=== PATIENT | female | born 1935 | race Caucasian/White ===

== ENCOUNTER → 2017-11-07 | Outpatient (CLI) | payer MEDICARE ==
[~2017-11-07] MED LIST: AMLODIPINE BESY10 MG; ASPIRIN81 M2; BROVANA15 MCG/2 M INH; BYSTOLIC 5 MG5 M1; CALCIUM 500 +1 EAC5; CARTIA XT180 M1 PO; CENTRUM SILVER1 EAC4 PO; IMDUR 30 MG TAB30 M1; IMURAN 50MG TAB50 M1; INCRUSE ELLI62.5 MCG INH; MICARDIS 80 MG80 MG; MICARDIS 80 MG80 MG PO; MULTIVITAMINS1 EAC7; PREMARIN VAGI42.5 G1; PRESERVISION T1 EACH; SPIRIVA INH; TRIAMTERENE/HCT1 CA1 PO; XANAX 0.25 MG0.25 MG PO
[2017-11-07 10:19] LABS: ABSOLUTE EOSINOPHILS 0.2 thou/uL (0.0-0.7); ABSOLUTE LYMPHOCYTES 1.2 thou/uL (0.8-5.3); ABSOLUTE MONOCYTES 0.6 thou/uL (0.0-1.2); ABSOLUTE NEUTROPHILS 6.5 thou/uL (1.6-8.1); BASOPHILS 0.5 %; EOSINOPHILS 1.8 %; HEMATOCRIT 40.3 % (37.0-47.0); HEMOGLOBIN 13.6 gm/dL (12.0-15.0); LYMPHOCYTES 14.6 %; MCH 32.2 pg (26.0-34.0); MCHC 33.7 g/dL (28.0-37.0); MCV 95.6 fL (80.0-100.0); MONOCYTES 6.8 %; MPV 8.1 fl. (7.2-11.1); NUCLEATED RBCS 0 /100WBC; PLATELET COUNT* 284 thou/uL (150-400); POLYS 76.3 %; RBC 4.21 mil/uL (4.20-5.00); RDW-CV 14.3 % (10.5-14.5); WBC 8.5 thou/uL (4.0-11.0)
[2017-11-07 10:36] LABS: PROTIME 9.9 Seconds (9.20-11.50)
[2017-11-07 10:38] LABS: ALBUMIN 3.9 g/dL (3.4-5.0); CALCIUM 9.4 mg/dL (8.5-10.1); CREATININE 0.9 mg/dL (0.6-1.3); POTASSIUM 3.6 mmol/L (3.5-5.1); TOTAL BILIRUBIN 0.6 mg/dL (<0.1-1.0); TOTAL PROTEIN 8.1 g/dL (6.4-8.2)
== END ==
LOC: M.ULTRA 09:55 → M.LAB 10:00 → M.ULTRA 10:30
PROVIDERS: Internal Medicine Gastroenterology
DX: K74.60 Unspecified cirrhosis of liver (principal); K75.4 Autoimmune hepatitis

== ENCOUNTER → 2018-06-03 | Outpatient (CLI) | payer MEDICARE ==
[2018-06-03 09:58] LABS: ABSOLUTE EOSINOPHILS 0.1 thou/uL (0.0-0.7); ABSOLUTE LYMPHOCYTES 1.3 thou/uL (0.8-5.3); ABSOLUTE MONOCYTES 0.5 thou/uL (0.0-1.2); ABSOLUTE NEUTROPHILS 5.6 thou/uL (1.6-8.1); BASOPHILS 0.6 %; EOSINOPHILS 1.6 %; HEMOGLOBIN 13.4 gm/dL (12.0-15.0); LYMPHOCYTES 17.2 %; MCH 32.1 pg (26.0-34.0); MCHC 33.5 g/dL (28.0-37.0); MCV 95.9 fL (80.0-100.0); MONOCYTES 7.2 %; MPV 7.6 fl. (7.2-11.1); NUCLEATED RBCS 0 /100WBC; PLATELET COUNT* 294 thou/uL (150-400); POLYS 73.4 %; RBC 4.17 mil/uL (4.20-5.00); RDW-CV 14.6 % (10.5-14.5); WBC 7.6 thou/uL (4.0-11.0)
[2018-06-03 10:07] LABS: PROTIME 10.2 Seconds (9.20-11.50)
[2018-06-03 10:14] LABS: ALBUMIN 3.7 g/dL (3.4-5.0); CALCIUM 9.2 mg/dL (8.5-10.1); CREATININE 0.8 mg/dL (0.6-1.3); POTASSIUM 3.9 mmol/L (3.5-5.1); TOTAL BILIRUBIN 0.6 mg/dL (<0.1-1.0); TOTAL PROTEIN 7.8 g/dL (6.4-8.2)
== END ==
LOC: M.LAB 09:43
PROVIDERS: Internal Medicine Gastroenterology
DX: K74.60 Unspecified cirrhosis of liver (principal); K75.4 Autoimmune hepatitis

== ENCOUNTER 2018-06-05 16:53 | Emergency (ER) | payer MEDICARE ==
[~2018-06-05] VITALS: Ht 167.6 cm; Wt 59.0 kg
[~2018-06-05 16:53] MED LIST changes: -CENTRUM SILVER1 EAC4 PO; -INCRUSE ELLI62.5 MCG INH
[2018-06-05] MEDS ORDERED: MICARDIS 80 MG80 MG PO (17:08)
[2018-06-05] MEDS ORDERED: CENTRUM SILVER1 EAC4 PO (17:09)
[2018-06-05] MEDS ORDERED: INCRUSE ELLI62.5 MCG INH (17:10)
[2018-06-05 19:27] VITALS: BP 142/70
== END 2018-06-05 19:28 | disposition home or self-care (01) ==
LOC: M.ERS 16:53
DX: S62.327A Displaced fracture of shaft of fifth metacarpal bone, left hand, initial encounter for closed fracture (principal); S61.412A Laceration without foreign body of left hand, initial encounter; S80.212A Abrasion, left knee, initial encounter; M25.552 Pain in left hip; J44.9 Chronic obstructive pulmonary disease, unspecified; Z90.710 Acquired absence of both cervix and uterus; Z90.49 Acquired absence of other specified parts of digestive tract; Z86.73 Personal history of transient ischemic attack (TIA), and cerebral infarction without residual deficits; Z88.2 Allergy status to sulfonamides; W01.0XXA Fall on same level from slipping, tripping and stumbling without subsequent striking against object, initial encounter; Y93.89 Activity, other specified; Y92.89 Other specified places as the place of occurrence of the external cause; Y99.8 Other external cause status

== ENCOUNTER → 2018-06-27 | Outpatient (CLI) | payer MEDICARE ==
[~2018-06-27] MED LIST changes: +CENTRUM SILVER1 EAC4 PO; +INCRUSE ELLI62.5 MCG INH
== END ==
LOC: M.ULTRA 09:00
DX: K74.60 Unspecified cirrhosis of liver (principal); K75.4 Autoimmune hepatitis; I70.0 Atherosclerosis of aorta

== ENCOUNTER → 2019-01-01 | Outpatient (CLI) | payer MEDICARE ==
[2019-01-01 11:30] LABS: ABSOLUTE EOSINOPHILS 0.1 thou/uL (0.0-0.7); ABSOLUTE LYMPHOCYTES 1.2 thou/uL (0.8-5.3); ABSOLUTE MONOCYTES 0.6 thou/uL (0.0-1.2); ABSOLUTE NEUTROPHILS 6.5 thou/uL (1.6-8.1); BASOPHILS 0.4 %; EOSINOPHILS 1.4 %; HEMATOCRIT 36.5 % (37.0-47.0); HEMOGLOBIN 12.4 gm/dL (12.0-15.0); LYMPHOCYTES 14.6 %; MCH 32.3 pg (26.0-34.0); MCV 95.1 fL (80.0-100.0); MONOCYTES 7.2 %; MPV 7.5 fl. (7.2-11.1); NUCLEATED RBCS 0 /100WBC; PLATELET COUNT* 329 thou/uL (150-400); POLYS 76.4 %; RBC 3.84 mil/uL (4.20-5.00); RDW-CV 14.3 % (10.5-14.5); WBC 8.5 thou/uL (4.0-11.0)
[2019-01-01 11:39] LABS: PROTIME 10.2 Seconds (9.20-11.50)
== END ==
LOC: M.LAB 11:06
PROVIDERS: Internal Medicine Gastroenterology
DX: K74.60 Unspecified cirrhosis of liver (principal); K75.4 Autoimmune hepatitis

== ENCOUNTER → 2019-02-10 | Outpatient (CLI) | payer MEDICARE ==
[2019-02-10 13:43] LABS: ALBUMIN 3.5 g/dL (3.4-5.0); CALCIUM 9.6 mg/dL (8.5-10.1); CREATININE 0.8 mg/dL (0.6-1.3); POTASSIUM 3.6 mmol/L (3.5-5.1); TOTAL BILIRUBIN 0.5 mg/dL (<0.1-1.0)
== END ==
LOC: M.LAB 13:03
PROVIDERS: Internal Medicine Gastroenterology
DX: K75.4 Autoimmune hepatitis (principal); K74.60 Unspecified cirrhosis of liver

== ENCOUNTER → 2019-02-16 | Outpatient (CLI) | payer MEDICARE | LOC: M.RAD 13:25 | DX: M81.0 Age-related osteoporosis without current pathological fracture (principal); M85.89 Other specified disorders of bone density and structure, multiple sites; Z78.0 Asymptomatic menopausal state ==

== ENCOUNTER → 2019-06-17 | Outpatient (CLI) | payer MEDICARE ==
[2019-06-17 11:33] LABS: ABSOLUTE BASOPHILS 0.1 thou/uL (0.0-0.2); ABSOLUTE EOSINOPHILS 0.1 thou/uL (0.0-0.7); ABSOLUTE LYMPHOCYTES 1.4 thou/uL (0.8-5.3); ABSOLUTE MONOCYTES 0.6 thou/uL (0.0-1.2); BASOPHILS 0.6 %; EOSINOPHILS 1.7 %; HEMATOCRIT 35.1 % (37.0-47.0); HEMOGLOBIN 12.1 gm/dL (12.0-15.0); LYMPHOCYTES 16.7 %; MCH 32.6 pg (26.0-34.0); MCHC 34.5 g/dL (28.0-37.0); MCV 94.7 fL (80.0-100.0); MONOCYTES 7.9 %; MPV 7.5 fl. (7.2-11.1); NUCLEATED RBCS 0 /100WBC; PLATELET COUNT* 320 thou/uL (150-400); POLYS 73.1 %; RDW-CV 14.4 % (10.5-14.5); WBC 8.2 thou/uL (4.0-11.0)
[2019-06-17 11:57] LABS: ALBUMIN 3.8 g/dL (3.4-5.0); CALCIUM 9.5 mg/dL (8.5-10.1); CREATININE 0.9 mg/dL (0.6-1.3); POTASSIUM 3.8 mmol/L (3.5-5.1); TOTAL BILIRUBIN 0.5 mg/dL (<0.1-1.0); TOTAL PROTEIN 7.4 g/dL (6.4-8.2)
== END ==
LOC: M.LAB 11:09
PROVIDERS: Internal Medicine Gastroenterology
DX: K75.4 Autoimmune hepatitis (principal); K74.60 Unspecified cirrhosis of liver

== ENCOUNTER 2020-04-09 13:27 | Emergency (ER) | payer MEDICARE ==
[~2020-04-09] VITALS: Ht 165.1 cm; Wt 54.4 kg
[2020-04-09] MEDS ORDERED: MICARDIS40 MG PO (13:47)
[2020-04-09] MEDS ORDERED: ALTERA NEBULIZ1 EACH INH (13:47)
[2020-04-09] MEDS ORDERED: AVASTIN25 MG/1 ML IV (13:47)
[2020-04-09] MEDS ORDERED: OXYGEN MISCELL (13:48)
[2020-04-09] MEDS ORDERED: COLACE100 MG PO (15:33)
[2020-04-09] MEDS ORDERED: ROXICODONE5 M2 PO (15:37)
[2020-04-09 15:48] VITALS: BP 145/70
== END 2020-04-09 15:48 | disposition home or self-care (01) ==
LOC: M.ERS 13:27
DX: S32.030A Wedge compression fracture of third lumbar vertebra, initial encounter for closed fracture (principal); M25.551 Pain in right hip; J44.9 Chronic obstructive pulmonary disease, unspecified; Z90.710 Acquired absence of both cervix and uterus; Z90.49 Acquired absence of other specified parts of digestive tract; Z86.73 Personal history of transient ischemic attack (TIA), and cerebral infarction without residual deficits; Z96.642 Presence of left artificial hip joint; Z88.2 Allergy status to sulfonamides; W18.39XA Other fall on same level, initial encounter; Y93.89 Activity, other specified; Y92.89 Other specified places as the place of occurrence of the external cause; Y99.8 Other external cause status

== ENCOUNTER 2020-07-21 13:02 | Emergency (ER) | payer OTHER, MEDICARE ==
[~2020-07-21] VITALS: Ht 165.1 cm; Wt 55.3 kg
[~2020-07-21 13:02] MED LIST changes: +ALTERA NEBULIZ1 EACH INH; +AVASTIN25 MG/1 ML IV; +COLACE100 MG PO; +MICARDIS40 MG PO; +OXYGEN MISCELL; +ROXICODONE5 M2 PO
[2020-07-21 14:10] LABS: ABSOLUTE EOSINOPHILS 0.1 thou/uL (0.0-0.7); ABSOLUTE LYMPHOCYTES 0.8 thou/uL (0.8-5.3); ABSOLUTE MONOCYTES 0.7 thou/uL (0.0-1.2); ABSOLUTE NEUTROPHILS 8.9 thou/uL (1.6-8.1); BASOPHILS 0.3 %; HEMATOCRIT 33.8 % (37.0-47.0); HEMOGLOBIN 11.5 gm/dL (12.0-15.0); LYMPHOCYTES 7.7 %; MCH 32.4 pg (26.0-34.0); MCV 95.3 fL (80.0-100.0); MONOCYTES 6.8 %; MPV 7.8 fl. (7.2-11.1); NUCLEATED RBCS 0 /100WBC; PLATELET COUNT* 381 thou/uL (150-400); POLYS 84.2 %; RBC 3.55 mil/uL (4.20-5.00); RDW-CV 19.7 % (10.5-14.5); WBC 10.5 thou/uL (4.0-11.0)
[2020-07-21 14:15] LABS: CREATININE 0.9 mg/dL (0.6-1.3); POTASSIUM 3.8 mmol/L (3.5-5.1)
[2020-07-21 14:19] LABS: ALBUMIN 3.3 g/dL (3.4-5.0); TOTAL BILIRUBIN 0.7 mg/dL (<0.1-1.0); TOTAL PROTEIN 7.3 g/dL (6.4-8.2)
[2020-07-21 15:28] LABS: URINE BILIRUBIN NEGATIVE (Negative); URINE BLOOD NEGATIVE (Negative); URINE CLARITY CLEAR; URINE COLOR YELLOW; URINE GLUCOSE-RANDOM NEGATIVE (Negative); URINE KETONES NEGATIVE (Negative); URINE LEUKOCYTES-REFLEX 1+ (Negative); URINE NITRITE-REFLEX NEGATIVE (Negative); URINE PROTEIN NEGATIVE (Negative); URINE UROBILINOGEN 0.2 E.U./dl (0.2-1.0)
[2020-07-21 15:46] LABS: BACTERIA-REFLEX 1-9 Few /HPF (None Seen); COARSE GRANULAR CASTS 0-3 Few /LPF (None Seen); CRYSTALS None Seen /LPF (None Seen); FINE GRANULAR CASTS 0-3 Few /LPF (None Seen); HYALINE CASTS 0-3 Few /LPF (None Seen); SQUAMOUS >10 Many /LPF (0-3); URINE RBC 0-2 Rare /HPF (0-2); URINE WBC-REFLEX 0-5 Rare /HPF (0-5)
--- NOTE | 2020-07-21 16:19 | EKG ---
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[facility] : 1935 Requested By: Nancy Hurtado Order Number: [id number] MD: Tello Zarate Measurements Intervals [place] Rate: 94 P: 97 SD: 131 QRS: 56 QRSD: 102 T: 69 QT: 369 QTc: 462 Interpretive Statements Sinus rhythm Borderline ST depression, diffuse leads Compared to ECG 05/21/2013 14:54:33 Sinus arrhythmia no longer present ST (T wave) deviation still present Electronically Signed On 07-21-2020 16:19:34 [employer] by Tello Zarate [email or web address] <ELECTRONICALLY SIGNED> By: Tello Zarate MD, FAC 07/21/20 1619 1335 1335 Tello Zarate MD, [facility] /EPI
[2020-07-21] MEDS ORDERED: HYDROCODON-ACE1 EAC7 PO (16:28)
[2020-07-21 16:30] VITALS: BP 131/68
== END 2020-07-21 16:30 | disposition home or self-care (01) ==
LOC: M.ERS 13:02
PROVIDERS: Physician Assistant
DX: K86.2 Cyst of pancreas (principal); J44.9 Chronic obstructive pulmonary disease, unspecified; Z90.710 Acquired absence of both cervix and uterus; Z90.89 Acquired absence of other organs; Z86.73 Personal history of transient ischemic attack (TIA), and cerebral infarction without residual deficits; Z79.899 Other long term (current) drug therapy; Z79.82 Long term (current) use of aspirin; Z88.2 Allergy status to sulfonamides

== ENCOUNTER → 2020-11-11 | Outpatient (CLI) | payer MEDICARE ==
[~2020-11-11] MED LIST changes: +HYDROCODON-ACE1 EAC7 PO
[2020-11-11 12:44] LABS: CREATININE 0.7 mg/dL (0.6-1.3)
== END ==
LOC: M.LAB 12:12 → M.CT 13:30
PROVIDERS: ATTEND Surgery
DX: K42.9 Umbilical hernia without obstruction or gangrene (principal); R19.04 Left lower quadrant abdominal swelling, mass and lump; I25.10 Atherosclerotic heart disease of native coronary artery without angina pectoris; K40.90 Unilateral inguinal hernia, without obstruction or gangrene, not specified as recurrent

== ENCOUNTER 2020-12-16 09:21 | Observation (INO) | payer MEDICARE ==
[~2020-12-16] VITALS: Ht 165.1 cm; Wt 51.7 kg
--- NOTE | ~2020-12-16 | OP ---
[address] [address] OPERATIVE REPORT Name: TONY CASTANEDA [id number] Admission: 12/16/20 Attend Phys: Eduardo Caballero DO Discharge: Date of : 33 Report #: [id number] THIS REPORT FOR: cc: Ray Addison MD, Meng MD Kramer, Adam P. DO ~ DOC #: [id number] Fitz Hernández DO DATE OF SURGERY: 12/16/2020 PREOPERATIVE DIAGNOSES: Left inguinal hernia and incisional hernia. POSTOPERATIVE DIAGNOSES: Left-sided spigelian hernia and incisional hernia. PROCEDURE PERFORMED: Incisional hernia repair with mesh and primary repair of spigelian hernia. PRIMARY SURGEON: Eduardo Caballero DO. CO-SURGEON: Fitz Hernández DO, PGY5. TRANSLITERATOR: None. ANESTHESIA: General, local. FINDINGS: A small incisional hernia above her umbilicus and left lower quadrant spigelian hernia. COMPLICATIONS: None. ESTIMATED BLOOD LOSS: 5 mL. SPECIMENS: None. IMPLANTS: Ventralex ST 4.3 cm gambell mesh. INDICATIONS: The patient is an 85-year-old female that presented to our clinic with complaints of incisional hernia near her umbilicus as well as a left lower quadrant bulge. She had a CT scan that described this as an inguinal hernia repair. She was informed of the risks and benefits of hernia repair of both the incisional hernia and the left inguinal hernia. She agreed and decided to proceed with surgery. DESCRIPTION OF PROCEDURE: After informed consent was obtained, the patient was brought to the operating room and placed in supine position. SCDs were on and running. Preoperative antibiotics were given. General anesthesia was [place] [id number] OPERATIVE REPORT Name: TONY CASTANEDA Room: [address] Osorio Fuller#: [id number] Admission: 12/16/20 Attend Phys: Eduardo Caballero DO Discharge: Date of : 33 Report #: [id number] administered with an ET tube. The patient was prepped and draped in the usual sterile fashion. A surgical pause was held to confirm proper patient and procedure. Surgery was begun at the incisional hernia. A vertical periumbilical incision was made with a 15 blade. Dissection was carried through the subcutaneous tissue using cautery. The hernia sac was identified and scored using cautery. The hernia sac was excised from the surrounding fascial defect. There was a small amount of omental fat that was contained within this. These adhesions to the hernia sac were taken down using blunt dissection and cautery until the hernia contents were completely reduced. A finger was inserted through the fascial defect and a landing zone was palpated. There was no additional adjacent hernia defects. A 4.[address] gambell mesh was selected, hydrated and inserted through the fascial defect and elevated with a strap. The fascia was closed over top of the mesh incorporating some of the mesh into the closure using 3 sutures of interrupted 0 Prolene. We then closed the incision with 3-0 Vicryl, 4-0 Monocryl and dressed it with Dermabond. We then turned towards the left inguinal hernia. The left ASIS and left pubic tubercle were marked. An incision was made mcc between these 2 structures. A 15 blade was used to make a 5 cm incision. Dissection was carried the subcutaneous tissue using cautery. Palpation guided us towards bulge from the external oblique and abdominal wall. Once this was bluntly dissected down to the fascial defect, there was noted to be a spigelian hernia at the lateral border of the rectus in the left lower quadrant below the arcuate line. The hernia sac was bluntly dissected free from the fascial defect and this was reduced. Through the small size of the defect's neck, it was decided to perform the primary repairs with 2 sutures with interrupted 0 Prolene were used to close the fascial defect. The incision was then closed in a layered fashion using 3-0 Vicryl, 4-0 Monocryl. Prior to closure, we did palpate the remainder of the inguinal region and there was no evidence of any additional hernias, so the dissection was ceased at that point. Once the incision was closed, an ilioinguinal nerve block as well as local were injected at all incision sites. The left lower quadrant wound was cleansed and dressed with Dermabond. The patient was emerged from anesthesia and transferred to the PACU in stable condition. All counts were correct. Eduardo Caballero DO CH/GO/SOT By: [id number] Caballero DO /keshav
--- NOTE | ~2020-12-16 | H ---
[address] [address] HISTORY AND PHYSICAL Name: TONY CASTANEDA Room: [address] Osorio Fuller#: [id number] Admission: 12/16/20 Attend Phys: Eduardo Caballero DO Discharge: 12/17/20 Date of : 33 Report #: [id number] THIS REPORT FOR: cc: Ray Addison MD, Meng MD [facility],Medical Records Staff ~ Please refer to the History and Physical performed in the physician's office. By: [id number] Records Staff [facility] /AUDIE
[~2020-12-16 09:21] MED LIST changes: +MIRALAX17 G1 PO; +PRESERVISION T1 EACH PO
--- NOTE | 2020-12-16 10:02 | EKG ---
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 : 1935 Requested By: Eduardo Caballero Order Number: [id number] Reading MD: Tello Zarate Measurements Intervals [place] Rate: 98 P: 58 MD: 128 QRS: 66 QRSD: 98 T: 68 QT: 346 QTc: 442 Interpretive Statements Sinus rhythm ST depression, consider ischemia, lateral lds Compared to ECG 07/21/2020 13:35:10 Possible ischemia now present Electronically Signed On 12-16-2020 10:01:49 CDT by Tello Zarate [email or web address] <ELECTRONICALLY SIGNED> By: Tello Zarate MD, [facility] 12/16/20 1001 0949 0949 Tello Zarate MD, [facility] /EPI
[2020-12-16 10:24] LABS: HEMATOCRIT 35.5 % (37.0-47.0); HEMOGLOBIN 11.9 gm/dL (12.0-15.0); MCH 33.4 pg (26.0-34.0); MCHC 33.5 g/dL (28.0-37.0); MCV 99.7 fL (80.0-100.0); MPV 7.3 fl. (7.2-11.1); RBC 3.56 mil/uL (4.20-5.00); WBC 7.2 thou/uL (4.0-11.0)
[2020-12-16 10:32] LABS: CALCIUM 10.3 mg/dL (8.5-10.1); CREATININE 0.7 mg/dL (0.6-1.3); POTASSIUM 3.3 mmol/L (3.5-5.1)
--- NOTE | 2020-12-16 17:48 | NUR ---
PT ADMITTED POST OP HERNIA REPAIR. PT ALERT AND ORIENTED. PT ORIENTED TO ROOM. FALL RISK PRECAUTIONS IN PLACE. FAMILY AT BEDSIDE.
[2020-12-16 17:50] VITALS: BP 129/65
[2020-12-16 20:30] VITALS: BP 136/61
[2020-12-17] VITALS: BP 135/67
[2020-12-17 04:00] VITALS: BP 145/73
--- NOTE | 2020-12-17 04:32 | NUR ---
PT NOT REPORTING ANY PAIN, ONLY WANTED TYLENOL ONCE FOR SLIGHT DISCOMFORT IN ABDOMINAL AREA. SHE IS AMBULATING WELL WITH HER WALKER, 3L-O2, ALERT AND ORIENTED. VSS. SCD'S IN PLACE, FLUIDS SCHEDULED. SHE RECEIVED ALL MEDS SCHEDULED. WILL CONTINUE TO MONITOR.
[2020-12-17 07:00] VITALS: BP 152/69
[2020-12-17 08:57] VITALS: BP 152/69
--- NOTE | 2020-12-17 10:42 | NUR ---
PT GIVEN DISCHARGE INFORMATION. IV REMOVED. PT BELONGINGS GATHERED. PT LEFT VIA WHEELCHAIR WITH NURSING STAFF TO HOME. FALL RISK PRECAUTIONS IN PLACE. HOURLY ROUNDING COMPLETED.
== END 2020-12-17 10:42 | disposition home or self-care (01) ==
LOC: M.TBA 09:21 → M.PRE 12:21 → M.ORTHSURG 17:37
PROVIDERS: ADMIT Surgery; ATTEND Surgery
DX: K43.2 Incisional hernia without obstruction or gangrene (principal); K40.90 Unilateral inguinal hernia, without obstruction or gangrene, not specified as recurrent; K43.9 Ventral hernia without obstruction or gangrene; Z79.899 Other long term (current) drug therapy

== ENCOUNTER → 2021-03-28 | Outpatient (CLI) | payer MEDICARE | LOC: M.ULTRA 10:30 | PROVIDERS: ATTEND Internal Medicine Gastroenterology | DX: K76.0 Fatty (change of) liver, not elsewhere classified (principal); R79.89 Other specified abnormal findings of blood chemistry; K75.4 Autoimmune hepatitis ==

== ENCOUNTER → 2021-08-01 | Outpatient (CLI) | payer MEDICARE | LOC: M.ULTRA 14:00 | PROVIDERS: ATTEND Internal Medicine | DX: M79.661 Pain in right lower leg (principal); M79.89 Other specified soft tissue disorders ==

== ENCOUNTER 2021-08-28 14:36 | Emergency (ER) | payer MEDICARE ==
[~2021-08-28] VITALS: Ht 165.1 cm; Wt 49.0 kg
[2021-08-28 15:37] LABS: HEMOGLOBIN 9.7 gm/dL (12.0-15.0); MCH 31.1 pg (26.0-34.0); MCHC 33.5 g/dL (28.0-37.0); MCV 92.8 fL (80.0-100.0); RBC 3.13 mil/uL (4.20-5.00); WBC 6.9 thou/uL (4.0-11.0)
[2021-08-28 15:48] LABS: CREATININE 0.7 mg/dL (0.6-1.3); POTASSIUM 4.1 mmol/L (3.5-5.1)
[2021-08-28 15:53] LABS: ALBUMIN 2.8 g/dL (3.4-5.0); TOTAL BILIRUBIN 0.2 mg/dL (<0.1-1.0); TOTAL PROTEIN 6.6 g/dL (6.4-8.2)
[2021-08-28 17:09] VITALS: BP 137/61
== END 2021-08-28 17:10 | disposition home or self-care (01) ==
LOC: M.ERS 14:36
PROVIDERS: Emergency Medicine Emergency Medical Services
DX: R60.0 Localized edema (principal); Z90.710 Acquired absence of both cervix and uterus; Z98.890 Other specified postprocedural states; Z90.49 Acquired absence of other specified parts of digestive tract; Z79.899 Other long term (current) drug therapy; Z79.82 Long term (current) use of aspirin; Z88.2 Allergy status to sulfonamides

== ENCOUNTER → 2021-08-30 | Outpatient (CLI) | payer MEDICARE | LOC: M.ULTRA 13:00 | PROVIDERS: ATTEND Internal Medicine | DX: R60.0 Localized edema (principal) ==

== ENCOUNTER 2021-09-10 18:51 | Emergency (ER) | payer MEDICARE ==
[~2021-09-10] VITALS: Ht 165.1 cm; Wt 49.0 kg
[2021-09-10] MEDS ORDERED: NORCO5 PO (21:11)
[2021-09-10 21:39] VITALS: BP 139/66
== END 2021-09-10 21:39 | disposition home or self-care (01) ==
LOC: M.ERS 18:51
DX: M25.552 Pain in left hip (principal); M25.512 Pain in left shoulder; Z88.2 Allergy status to sulfonamides; Z90.710 Acquired absence of both cervix and uterus; Z90.49 Acquired absence of other specified parts of digestive tract